=== PATIENT | male | born 1940 | race Hispanic/Latino ===

== ENCOUNTER 2017-07-31 11:45 | Observation (INO) | payer OTHER, MEDICARE ==
[~2017-07-31] VITALS: Ht 175.3 cm; Wt 108.2 kg
[~2017-07-31 11:45] MED LIST: AEC81 PO; CARV12.511 PO; HYDR-3965 PO; WARF-57 PO; atorvastatin; combigan OU; latanoprost OU
[2017-07-31 12:05] LABS: BASOPHILS % (AUTO) 1.2 % (0.0-5.0); HEMATOCRIT 48.7 % (42-54); LYMPHOCYTES % (AUTO) 26.9 % (21.0-51.0); MEAN CORPUSCULAR HEMOGLOBIN 29.1 pg (27.0-33.0); MEAN CORPUSCULAR HGB CONC 33.4 g/dL (32.0-36.0); MEAN CORPUSCULAR VOLUME 87.2 fL (79-99); MONOCYTES % (AUTO) 4.5 % (3.0-13.0); NEUTROPHILS % (AUTO) 65.4 % (40.0-77.0); PLATELET COUNT (AUTO) 222 K/uL (130-400); RED BLOOD CELL COUNT(AUTO) 5.58 MIL/uL (4.50-6.20); RED CELL DISTRIBUTION WIDTH 14.6 % (11.0-15.5); WHITE BLOOD COUNT (AUTO) 7.7 K/uL (4.8-10.8)
[2017-07-31 12:12] LABS: CREATININE 1.3 mg/dL (0.5-1.5); POTASSIUM 4.5 mmol/L (3.5-5.1)
[2017-07-31 12:28] LABS: ALBUMIN 3.5 g/dL (3.5-5.0); BILIRUBIN,TOTAL 0.5 mg/dL (0.2-1.0); CREATINE KINASE MB 2.7 ng/mL (0.5-3.6); TOTAL PROTEIN, SERUM 7.2 g/dL (6.0-8.3)
[2017-07-31] MEDS ORDERED: ASPIRIN 325 MG TABLET ONE (13:05)
[2017-07-31] MEDS ORDERED: NITROGLYCERIN 0.4 MG SL TAB SL ONE (13:05)
[2017-07-31] MEDS ORDERED: METOPROLOL TARTRATE 25 MG TAB ONE (15:18)
[2017-07-31] MEDS ORDERED: ENOXAPARIN SODIUM 30 MG/0.3 ML SQ ONE ×2 (15:18→15:23)
[2017-07-31] MEDS ORDERED: LIDOCAINE HCL-MPF 1% 2ML VIAL IJ PRN (16:45)
[2017-07-31] MEDS ORDERED: POTASSIUM CHLORIDE 20 MEQ ERTAB PO PRN (16:45)
[2017-07-31] MEDS ORDERED: POTASSIUM CHLORIDE 20MEQ/100ML 100 ML IV PRN (16:45)
[2017-07-31] MEDS ORDERED: ONDANSETRON HCL 4 MG/2 ML VIAL IVP PRN (16:45)
[2017-07-31] MEDS ORDERED: POTASSIUM CHLORIDE 10% ELIXIR 20 MEQ/15 ML UDCUP PO PRN (16:45)
[2017-07-31] MEDS ORDERED: ACETAMINOPHEN 325 MG TAB PO PRN ×2 (16:45)
[2017-07-31 18:39] VITALS: BP 148/85
[2017-07-31 20:00] VITALS: BP 141/84
[2017-07-31 20:23] LABS: CREATINE KINASE, TOTAL 120 U/L (21-232); MYOGLOBIN 104 ng/mL (10-92); TROPONIN I < 0.04 ng/mL (0.00-0.06)
[2017-07-31] MEDS: METOPROLOL TARTRATE 25 MG TAB PO SCH (21:29)
[2017-07-31] MEDS: IPRATROPIUM/ALBUTEROL SULFATE 3 ML SOLUTION IH SCH (21:29)
[2017-08-01] VITALS: BP 154/87
[2017-08-01] MEDS ORDERED: DEXTROSE 50%-WATER 50 ML DISP.SYRIN IV PRN (02:15)
[2017-08-01] MEDS ORDERED: GLUCAGON 1MG KIT 1 MG ML IM PRN (02:15)
[2017-08-01 04:00] VITALS: BP 141/78
[2017-08-01 05:33] LABS: HEMATOCRIT 45.1 % (42-54); MEAN CORPUSCULAR HEMOGLOBIN 29.4 pg (27.0-33.0); MEAN CORPUSCULAR HGB CONC 33.6 g/dL (32.0-36.0); MEAN CORPUSCULAR VOLUME 87.4 fL (79-99); PLATELET COUNT (AUTO) 221 K/uL (130-400); RED BLOOD CELL COUNT(AUTO) 5.16 MIL/uL (4.50-6.20); RED CELL DISTRIBUTION WIDTH 14.9 % (11.0-15.5); WHITE BLOOD COUNT (AUTO) 8.3 K/uL (4.8-10.8)
[2017-08-01 05:57] LABS: ALANINE AMINOTRANSFERASE 26 U/L (12-78); ASPARTATE AMINOTRANSFERASE 18 U/L (10-37); BILIRUBIN,TOTAL 0.5 mg/dL (0.2-1.0); CARBON DIOXIDE 29 mmol/L (21-32); CHLORIDE 104 mmol/L (101-111); CREATINE KINASE MB 1.6 ng/mL (0.5-3.6); CREATINE KINASE, TOTAL 102 U/L (21-232); CREATININE 1.3 mg/dL (0.5-1.5); GLOMERULAR FILTR. RATE CALC 57 mL/min (>60); GLUCOSE,RANDOM 97 mg/dL (70-105); MYOGLOBIN 114 ng/mL (10-92); SODIUM SERUM 138 mmol/L (136-145); TOTAL PROTEIN, SERUM 6.5 g/dL (6.0-8.3); TROPONIN I < 0.04 ng/mL (0.00-0.06); UREA NITROGEN, BLOOD 17 mg/dL (7-18)
[2017-08-01] MEDS: METOPROLOL TARTRATE 25 MG TAB PO SCH (06:40)
[2017-08-01] MEDS: INSULIN HUMULIN R 100 UNIT/ML 3ML SQ SCH ×3 (06:40→16:30)
[2017-08-01] MEDS: IPRATROPIUM/ALBUTEROL SULFATE 3 ML SOLUTION IH SCH ×2 (07:03→13:50)
[2017-08-01 08:00] VITALS: BP 153/85
[2017-08-01] MEDS ORDERED: ENOXAPARIN SODIUM 30 MG/0.3 ML SQ SCH (09:00)
[2017-08-01] MEDS ORDERED: ASPIRIN 81 MG EC TAB PO SCH (09:00)
[2017-08-01 11:38] LABS: INR 1.74 (0.85-1.15); PROTHROMBIN TIME 18.1 SEC (9.6-11.6)
[2017-08-01 11:42] VITALS: BP 114/63
[2017-08-01 16:00] VITALS: BP 143/85
[2017-08-01] MEDS ORDERED: WARFARIN SODIUM 5 MG TAB PO SCH (16:00)
[2017-08-01] MEDS ORDERED: TRAM50TA4 PO (17:15)
[2017-08-01] MEDS ORDERED: ALBU18HF7 IH (17:16)
[2017-08-01] MEDS ORDERED: ATORVASTATIN CALCIUM 20 MG TABLET PO SCH (21:00)
[2017-08-01] MEDS ORDERED: CARVEDILOL 12.5 MG TABLET PO SCH (21:00)
== END 2017-08-01 18:20 | disposition home or self-care (01) ==
LOC: EDH 11:45 → EDHIP 14:25 → 3CH 18:11 → 3DH 18:55
PROVIDERS: ADMIT Internal Medicine Infectious Disease; ATTEND Internal Medicine Infectious Disease
DX: J44.1 Chronic obstructive pulmonary disease with (acute) exacerbation (principal); M94.0 Chondrocostal junction syndrome [Tietze]; I25.5 Ischemic cardiomyopathy; E66.01 Morbid (severe) obesity due to excess calories; E11.22 Type 2 diabetes mellitus with diabetic chronic kidney disease; I12.9 Hypertensive chronic kidney disease with stage 1 through stage 4 chronic kidney disease, or unspecified chronic kidney disease; N18.9 Chronic kidney disease, unspecified; I25.10 Atherosclerotic heart disease of native coronary artery without angina pectoris; E78.5 Hyperlipidemia, unspecified; I48.0 Paroxysmal atrial fibrillation; Q24.0 Dextrocardia; Z86.79 Personal history of other diseases of the circulatory system; Z91.19 Patient's noncompliance with other medical treatment and regimen; Z95.5 Presence of coronary angioplasty implant and graft; Z96.651 Presence of right artificial knee joint; Z79.01 Long term (current) use of anticoagulants
CPT/HCPCS: 36415 ×2; 71045; 80053 ×2; 82550 ×3; 82553 ×3; 82948 ×3; 83735; 83874 ×2; 84484 ×3; 85025; 85027; 85610; 93005; 94640 ×3; 94664; 96372; 99285; G0378 ×28; J1650 ×3; J1815

== ENCOUNTER → 2018-03-27 | Outpatient (CLI) | payer OTHER, MEDICARE ==
[~2018-03-27] MED LIST changes: +ALBU18HF7 IH; -HYDR-3965 PO; +TRAM50TA4 PO
== END | disposition home or self-care (01) ==
LOC: RAH 13:05
PROVIDERS: ATTEND Internal Medicine Cardiovascular Disease
DX: R51 Headache (principal)
CPT/HCPCS: 70450

== ENCOUNTER 2018-08-27 06:51 | Inpatient (IN) | payer OTHER, MEDICARE | END 2018-09-13 18:00 | LOC: EDH 06:51 → 2CV 09-02 07:59 → 2CH 09-01 08:49 → 2AH 09-09 14:02 → EDHIP 08:20 → 3AH 11:09 | PROC: B2111ZZ Fluoroscopy of Multiple Coronary Arteries using Low Osmolar Contrast (ICD-10-PCS; principal; 2018-09-02 08:00) | PROC: 4A023N7 Measurement of Cardiac Sampling and Pressure, Left Heart, Percutaneous Approach (ICD-10-PCS; 2018-09-02 08:00) | PROC: 021 Heart and Great Vessels, Bypass (ICD-10-PCS; 2018-09-02 08:00) | DX: I21.4 Non-ST elevation (NSTEMI) myocardial infarction (principal); I50.43 Acute on chronic combined systolic (congestive) and diastolic (congestive) heart failure; Q24.0 Dextrocardia; I24.9 Acute ischemic heart disease, unspecified; N18.9 Chronic kidney disease, unspecified; I12.9 Hypertensive chronic kidney disease with stage 1 through stage 4 chronic kidney disease, or unspecified chronic kidney disease; I25.110 Atherosclerotic heart disease of native coronary artery with unstable angina pectoris; Z95.5 Presence of coronary angioplasty implant and graft; D72.829 Elevated white blood cell count, unspecified; I48.0 Paroxysmal atrial fibrillation; Z79.01 Long term (current) use of anticoagulants; R06.03 Acute respiratory distress; E78.5 Hyperlipidemia, unspecified ==

== ENCOUNTER → 2018-12-12 | Outpatient (CLI) | payer OTHER, MEDICARE ==
[~2018-12-12] MED LIST changes: +AMIO200T5 PO; -CARV12.511 PO; +FURO40TA5 PO; +METO25TA6 PO; +POTA-9 PO; +TAMS-1 PO; -TRAM50TA4 PO; +WARF2.5T85 PO
== END | disposition home or self-care (01) ==
LOC: SHCH 14:22
PROVIDERS: ATTEND Internal Medicine Cardiovascular Disease
DX: I25.10 Atherosclerotic heart disease of native coronary artery without angina pectoris (principal)
CPT/HCPCS: 93306

== ENCOUNTER 2019-03-20 06:58 | Day surgery (SDC) | payer OTHER, MEDICARE ==
[~2019-03-20] VITALS: Ht 180.3 cm; Wt 104.8 kg
[~2019-03-20 06:58] MED LIST changes: +SODIUM CHLORIDE 0.9% 1000ML 1,000 ML IV ONE
[2019-03-20 08:42] VITALS: BP 155/80
[2019-03-20] MEDS ORDERED: SACU1TAB PO (08:59)
[2019-03-20] MEDS ORDERED: APIX2.5T PO (08:59)
[2019-03-20] MEDS ORDERED: CARV3.12 PO (08:59)
[2019-03-20] MEDS ORDERED: PROPOFOL 10 MG/ML 20ML VIAL IV ONE (09:35)
[2019-03-20 09:56] VITALS: BP 88/59
[2019-03-20 10:02] VITALS: BP 95/74
[2019-03-20 10:07] VITALS: BP 131/83
[2019-03-20 10:12] VITALS: BP 125/82
--- NOTE | 2019-03-20 10:27 | NUR ---
PT LEFT VIA WHEELCHAIR IN PVT CAR, DC INSTRUCTIONS GIVEN TO FAMILY MEMBER WITH F/U APPT. V/S STABLE NO COMPLICATIONS UPON D/C
== END 2019-03-20 10:27 | disposition home or self-care (01) ==
LOC: DAH 06:58 → ENDO 06:58
PROVIDERS: ATTEND Internal Medicine
DX: D50.9 Iron deficiency anemia, unspecified (principal); K22.70 Barrett's esophagus without dysplasia; K31.89 Other diseases of stomach and duodenum; K64.0 First degree hemorrhoids; K57.30 Diverticulosis of large intestine without perforation or abscess without bleeding; I48.91 Unspecified atrial fibrillation; I25.10 Atherosclerotic heart disease of native coronary artery without angina pectoris; K92.1 Melena; E78.5 Hyperlipidemia, unspecified; I10 Essential (primary) hypertension; Z86.73 Personal history of transient ischemic attack (TIA), and cerebral infarction without residual deficits; Z98.890 Other specified postprocedural states; Z79.82 Long term (current) use of aspirin; Z79.899 Other long term (current) drug therapy; Z79.01 Long term (current) use of anticoagulants
CPT/HCPCS: 43239; 45378; A4215; A4221; A4222; A4223; A4606; A4620; A4663; J2704; J7030